=== PATIENT | female | born 1950 | race Caucasian/White ===

== ENCOUNTER 2017-03-11 15:22 | Emergency (ER) | payer MEDICARE ==
--- NOTE | 2017-03-11 15:46 | ERPHSYRPT ---
- History of Present Illness Time Seen by Provider: 03/11/17 15:36 Source: patient Exam Limitations: no limitations Patient Subjective Stated Complaint: states wine bottle fell out of fridge onto right foot Friday night; bruising and swelling, painful to walk Triage Nursing Assessment: old bruising to right dorsal foot extending from base of toes to ankle. Physician History: accidently dropped a heavy glass bottle on her right foot 48-72 hours ago; no other injury; no other complaint; no prior hx Method of Injury: direct blow Occurred: days ago (2-3) Quality: constant, aching Severity of Pain-Max: severe Severity of Pain-Current: moderate Lower Extremities Pain: ankle: left (painful; swollen echhymotic) Modifying Factors: Improves With: cold therapy, immobilization, pain medication Associated Symptoms: unable to bear weight Allergies/Adverse Reactions: isosorbide Allergy (Verified 07/27/14 16:59) shellfish derived Allergy (Verified 07/27/14 16:59) tramadol Allergy (Verified 07/27/14 16:59) Home Medications: Alprazolam 0.25 mg [xanAX 0.25 MG] 1 tab PO QDP PRN 03/11/17 [History] Aspirin 81 gm Chew [Baby Aspirin 81 mg Chew] 1 tab PO DAILY 03/11/17 [ History] Butalb/Acetaminophen/Caffeine [Zkgufx-Ofqgmpeh-Ytyz 50-325-40] 1 tab PO P94EVOD PRN 03/11/17 [History] Calcium Carbonate [Gaviscon] 1 tab PO QDP PRN 03/11/17 [History] Furosemide 20 mg [Lasix 20 mg] 1 tab PO QDP PRN 03/11/17 [History] Hydrocodone/Acetaminophen [Hydrocodone-Acetamin 7.5-325] 1 tab PO Q12H PRN PRN 03/11/17 [History] Ibuprofen 1 tab PO Q4HPRN PRN 03/11/17 [History] Loratadine 10 mg [Claritin 10 mg] 1 tab PO DAILY 03/11/17 [History] Metformin HCl 500 mg [Glucophage 500 MG] 1 tab PO BID 03/11/17 [History] Montelukast Sodium 10 mg [Singulair 10 MG] 1 tab PO DAILY 03/11/17 [History] Mvit,Calcium,Iron,Mins/A.acids [K-[place] Double Strength Capsule] 1 tab PO DAILY [History] Nitroglycerin 0.4 mg (Ed) [Nitrostat 0.4 MG (ED)] 1 tab SL Q5MIN PRN MR X 3 PRN 03/11/17 [History] PANTOPRAZOLE 40 mg Tablet [Protonix 40MG Tablet] 1 tab PO DAILY 03/11/17 [ History] Potassium Chloride 10 Meq Tab* [Klor Con 10 MEQ] 1 tab PO QDP PRN 03/11/17 [ History] Rosuvastatin Calcium [Crestor] 1 tab PO DAILY 03/11/17 [History] Hx Tetanus, Diphtheria Vaccination/Date Given: Yes Hx Influenza Vaccination/Date Given: Yes Hx Pneumococcal Vaccination/Date Given: No Immunizations Up to Date: Yes - Review of Systems Constitutional: No Symptoms Eyes: No Symptoms Ears, Nose, & Throat: No Symptoms Respiratory: No Cough, No Dyspnea, No Wheezing Cardiac: No Chest Pain, No Edema, No Palpitations, No Syncope Abdominal/Gastrointestinal: No Abdominal Pain, No Nausea, No Vomiting, No Diarrhea Genitourinary Symptoms: No Symptoms Musculoskeletal: Injury (right foot), No Back Pain, No Neck Pain, No Joint Pain Skin: Other (ecchymosis right foot) Neurological: No Symptoms Psychological: No Symptoms - Past Medical History Pertinent Past Medical History: Yes Neurological History: No Pertinent History Cardiac History: Hypertension, Other Respiratory History: No Pertinent History Endocrine Medical History: No Pertinent History Psycho-Social History: Anxiety - Past Surgical History Past Surgical History: Yes Gastrointestinal: Cholecystectomy, Hernia Repair Female Surgical History: Section, Hysterectomy Other Surgical History: TONSILS. WRIST SURGERY. LT FINGER AMPUTATION - Social History Smoking Status: Never smoker Exposure to second hand smoke: No Alcohol Use: Socially Drug Use: none Patient Lives Alone: No Significant Family History: no pertinent family hx - Female History Hx Now: No - Nursing Vital Signs Nursing Vital Signs: Initial Vital Signs Temperature 97.5 F 03/11/17 15:31 Pulse Rate 92 H 03/11/17 15:31 Respiratory Rate 20 03/11/17 15:31 Blood Pressure 168/95 03/11/17 15:31 O2 Sat by Pulse Oximetry 97 03/11/17 15:31 Pain Scale Pain Intensity 4 - Physical Exam General Appearance: mild distress, alert Neck Exam: normal inspection, non-tender, supple, full range of motion Hips Exam: bilateral: non-tender, normal inspection, normal range of motion, no evidence of injury Legs Exam: bilateral leg: non-tender, normal inspection, normal range of motion , no evidence of injury Knees Exam: bilateral knee: non-tender, normal inspection, normal range of motion, no evidence of injury Ankle Exam: bilateral ankle: non-tender, normal inspection, normal range of motion, no evidence of injury Foot Exam: right foot: bone tenderness (mid dorsum), pain (mid dorsum), soft tissue tenderness (mid dorsum), swelling (mid dorsum), left foot: non-tender, normal inspection, no evidence of injury, bilateral foot: normal range of motion DTR - Lower Extremities Exam: knee (R): 4+, knee (L): 4+ Neuro/Tendon Exam: normal sensation, normal motor functions, normal tendon functions, responds to pain Mental Status Exam: alert, oriented x 3, cooperative Skin Exam: normal color, warm, dry, ecchymosis (dorsum distal right foot) SpO2 Interpretation: normal SpO2: 97 Oxygen Delivery: Room Air - Course Nursing assessment & vital signs reviewed: Yes - Radiology Exams Right Foot X-ray Interpretation: Reviewed by me, Teleradiologist Report, Negative, No Fracture Ordered Tests: Active Orders 24 hr Category Date Time Status Cold Application STAT Care 03/11/17 15:39 Active Re-Check Vital Signs STAT Care 03/11/17 15:39 Active FOOT (MINIMUM 3 VIEWS) Stat Exams 03/11/17 15:39 Completed - Progress Progress: unchanged, re-examined (after xr) Progress Note: 03/11/17 15:45 ice applied; xr pending will recheck 03/11/17 16:31 xr neg; results shared; instructons given Counseled pt/family regarding: diagnosis, need for follow-up, rad results - Departure Time of Disposition: 16:31 Departure Disposition: Home Clinical Impression: Contusion of right foot, initial encounter Condition: Stable Critical Care Time: No Referrals: ISSA ROBB [Primary Care Provider] - Instructions: Foot Pain Additional Instructions: Acute Sprain Instructions lower extremity; R.I.C.E.; wear splint/immobilyzer as directed; observe for neuro-vascular compromise ( change in color; increased pain; cold to touch); Use crutches, walker, cane as directed. FU LMD/ specialist as directed; call for appointment as directed; Return if problems;motrin prn Take meds as prescribed. Follow-up with family doctor as directed. Call for appointment. Return if any problems. If you smoke please stop. Call or follow up with your family doctor for assistance if you need it to stop. Please wear your seatbelt when driving. Have a nice day. Thank you for allowing us to participate in your care today. :o) Dr Sarath Zhu
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
[2017-03-11 16:33] VITALS: BP 107/72; PULSE 80; O2SAT 96
== END 2017-03-11 16:57 | disposition home or self-care (01) ==
LOC: ED 15:22
DX: S90.31XA Contusion of right foot, initial encounter (principal); M79.671 Pain in right foot; W22.8XXA Striking against or struck by other objects, initial encounter; I10 Essential (primary) hypertension; Z79.899 Other long term (current) drug therapy
CPT/HCPCS: 73630; 99283

== ENCOUNTER 2022-02-14 12:18 | Emergency (ER) | payer MEDICARE, OTHER ==
--- NOTE | 2022-02-14 13:16 | ERPHSYRPT ---
- History of Present Illness Time Seen by Provider: 02/14/22 12:40 Source: patient Exam Limitations: no limitations Patient Subjective Stated Complaint: pt to ER with complaints of pain since Friday in her left leg. pt states she has pain with walking. Triage Nursing Assessment: pt ambulatory, skin pwd. A&Ox4. pt lower left leg pain with ambulation. Physician History: Patient is a 72-year-old female who presents with a complaint of pain in the left leg with weightbearing. This is been going on for 4 days she finds it difficult to put weight on it when walking. She awoke from sleep on Friday with no history of any trauma. The pain seems to localize most around the left knee. Method of Injury: unknown Occurred: days ago (4) Severity of Pain-Max: moderate Severity of Pain-Current: moderate Lower Extremities Pain: knee: left (She has a positive Homans at the top of the calf and tenderness in the popliteal fossa. On the left.) Modifying Factors: Improves With: movement Associated Symptoms: other (Pain with weightbearing) Allergies/Adverse Reactions: isosorbide Allergy (Verified 02/14/22 12:45) shellfish derived Allergy (Verified 02/14/22 12:45) tramadol Allergy (Verified 02/14/22 12:45) Home Medications: Loratadine 10 mg [Claritin 10 mg] 1 tab PO DAILY 03/11/17 [History] Hx Tetanus, Diphtheria Vaccination/Date Given: Yes Hx Influenza Vaccination/Date Given: Yes Hx Pneumococcal Vaccination/Date Given: No Travel Risk - International Travel Have you traveled outside of the country in past 3 weeks: No - Coronavirus Screening Are you exhibiting any of the following symptoms?: No Close contact with a COVID-19 positive Pt in past 14-21 Days: No - Vaccine Status Have you recieved a Covid-19 vaccination: No - Review of Systems Constitutional: No Fever, No Chills Eyes: No Symptoms Ears, Nose, & Throat: No Symptoms Respiratory: No Cough, No Dyspnea Cardiac: No Chest Pain, No Edema, No Syncope Abdominal/Gastrointestinal: No Abdominal Pain, No Nausea, No Vomiting, No Diarrhea Genitourinary Symptoms: No Dysuria Musculoskeletal: Joint Pain, No Back Pain, No Neck Pain Skin: No Rash Neurological: No Dizziness, No Focal Weakness, No Sensory Changes Psychological: No Symptoms Endocrine: No Symptoms All Other Systems: Reviewed and Negative - Past Medical History Pertinent Past Medical History: Yes Neurological History: No Pertinent History ENT History: Other Cardiac History: Hypertension, Other Respiratory History: No Pertinent History Endocrine Medical History: No Pertinent History Musculoskeletal History: Arthritis GI Medical History: GERD Psycho-Social History: Anxiety Other Medical History: hearing loss, use of hearing aids. - Past Surgical History Past Surgical History: Yes Gastrointestinal: Cholecystectomy, Hernia Repair Female Surgical History: Section, Hysterectomy Other Surgical History: TONSILS. WRIST SURGERY. LT FINGER AMPUTATION - Social History Smoking Status: Never smoker Exposure to second hand smoke: No Alcohol Use: Socially Drug Use: none Patient Lives Alone: No Significant Family History: no pertinent family hx - Nursing Vital Signs Nursing Vital Signs: Initial Vital Signs Temperature 98.1 F 02/14/22 12:35 Pulse Rate 78 02/14/22 12:35 Respiratory Rate 16 02/14/22 12:35 Blood Pressure 183/77 02/14/22 12:35 O2 Sat by Pulse Oximetry 97 02/14/22 12:35 Pain Scale Pain Intensity 5 - Physical Exam General Appearance: alert Eyes, Ears, Nose, Throat Exam: normal ENT inspection Neck Exam: normal inspection, non-tender, supple Cardiovascular/Respiratory Exam: chest non-tender, normal breath sounds, regular rate/rhythm, no respiratory distress Gastrointestinal/Abdominal Exam: non-tender, guarding Back Exam: normal inspection, No vertebral tenderness Hips Exam: bilateral: non-tender, normal inspection, normal range of motion Legs Exam: left leg: normal inspection, normal range of motion, no evidence of injury, soft tissue tenderness (Positive Homans left calf) Knees Exam: left knee: pain, soft tissue tenderness Ankle Exam: bilateral ankle: non-tender, normal inspection, normal range of motion Foot Exam: bilateral foot: non-tender, normal inspection, normal range of motion Neuro/Tendon Exam: normal sensation, normal motor functions Mental Status Exam: alert, oriented x 3, cooperative Skin Exam: normal color, warm, dry SpO2 Interpretation: normal SpO2: 97 O2 Delivery: Room Air - Course Nursing assessment & vital signs reviewed: Yes - Radiology Exams Left Knee X-ray Interpretation: Interpreted by me, Negative Ordered Tests: Active Orders 24 hr Category Date Time Status KNEE (3 VIEWS) Stat Exams 02/14/22 Taken VENOUS UNILAT/LIMITED EXTREMIT [US] Stat Exams 02/14/22 13:05 Taken - Progress Progress: unchanged - Departure Departure Disposition: Home Clinical Impression: Left knee pain Condition: Stable Critical Care Time: No Referrals: EMMA WRIGHT NP [Primary Care Provider] - Follow up/PCP as directed Instructions: Knee Pain (DC)
[2022-02-14 13:36] VITALS: BP 138/79; PULSE 70; O2SAT 96
--- NOTE | 2022-02-14 14:01 | XRAY ---
Exam: Duplex Doppler Ultrasound of the left lower extremity. Comparison: Bilateral lower extremity duplex Doppler venous ultrasound exam from 09/23/2007. Indication: 72-year-old female with left leg pain. Findings: The examination of the left lower extremity was carried out in the usual manner imaging hospital insurance representative sections of the common femoral vein through the popliteal vein. The posterior tibial veins were also evaluated. Normal color flow was seen throughout. Normal spontaneous and phasic flow was seen at all hospital insurance representative sections. There was normal transducer compression and doppler signal augmentation at all levels. The greater saphenous vein demonstrated normal color blood flow, compression, and Doppler signal augmentation within the proximal left thigh. Impression: 1. No evidence of deep venous thrombosis within the left lower extremity. No evidence of superficial venous thrombosis is seen within the greater saphenous vein within the proximal left thigh.
--- NOTE | 2022-02-14 14:23 | XRAY ---
Exam: 3 views of the left knee from 02/14/2022. Comparison: 3 views of the left knee from 05/07/2009. Indication: 72-year-old female with left knee pain. Findings: AP, internal oblique, and lateral radiographs of the left knee were obtained. I see no acute fracture or dislocation. There is a minimal suprapatellar effusion on the lateral radiograph. Small spurs are seen at the upper posterior and lower posterior margins of the left patella. I cannot exclude some mild narrowing of the patellofemoral joint. A sunrise view would better image this site. There is mild narrowing of the medial compartment of the left knee joint with some mild osteophyte formation on both sides of the medial aspect of the left knee joint as well as at the level of the tibial eminences. The lateral compartment of the left knee joint appears unremarkable. Impression: 1. Mild bicompartmental osteoarthritis of the left knee affecting the medial compartment and patellofemoral joint. 2. Small suprapatellar effusion of the left knee. 3. No acute left knee fracture, dislocation, or other significant focal bone lesion is seen.
== END 2022-02-14 13:37 | disposition home or self-care (01) ==
LOC: ED 12:18
DX: M25.562 Pain in left knee (principal); I10 Essential (primary) hypertension; Z28.310 Unvaccinated for COVID-19
CPT/HCPCS: 73562; 93971; 99283; L1830

== ENCOUNTER 2023-03-26 06:29 | Day surgery (SDC) | payer MEDICARE, OTHER ==
[2023-03-26] MEDS ORDERED: Lactated Ringers 1,000 ML IV SCH (06:30)
[2023-03-26 07:07] VITALS: RESP 16
[2023-03-26] MEDS ORDERED: Xylocaine-Mpf 2% 5 Ml Vial ONE (07:40)
[2023-03-26] MEDS ORDERED: DIPRIVAN 200 MG/20 ML IV ONE ×2 (07:40→07:47)
[2023-03-26 08:25] VITALS: TEMP 97
[2023-03-26 08:48] VITALS: BP 152/57; PULSE 63; O2SAT 99
--- NOTE | 2023-03-26 14:06 | OP ---
SURGERY DATE/TIME: 03/26/2023 0739 PREOPERATIVE DIAGNOSIS: Positive Cologuard. POSTOPERATIVE DIAGNOSIS: Colon polyps x2. PROCEDURE: Colonoscopy. SURGEON: Bnejy Jimenez M.D. ANESTHESIA: MAC by Juan Townsend CRNA. ESTIMATED BLOOD LOSS: Minimal. SPECIMENS: Two hot forceps polypectomies. DESCRIPTION OF PROCEDURE: After informed written consent was obtained, the patient was taken to the endoscopy suite. She was placed in left lateral decubitus position and anesthesia was titrated to desired level of consciousness. Digital rectal exam showed normal sphincter tone and no internal lesions. The scope was inserted into the rectum and sequentially the entire colonic mucosa was traversed. The level of cecum was reached and verified with direct visualization of the ileocecal valve. There was a small sessile polyp in the cecal region near the valve which is grasped with forceps, cauterized and removed in its entirety and sent to pathology. Upon withdrawal careful mucosal inspection revealed no gross mucosal abnormalities until the distal sigmoid colon was reached. There was another small sessile polyp in that region which was grasped with forceps, cauterized and sent to pathology. There was no bleeding. The entire lesion appeared to be removed with good cauterization of the bed. Prior to withdrawal retroflexion was performed and showed no internal lesions. The scope was removed. The patient was transferred to the recovery room in good condition. Will follow up in a week for pathology results.
== END 2023-03-26 09:00 | disposition home or self-care (01) ==
LOC: SDC 06:29
PROVIDERS: ATTEND Family Medicine
DX: D12.0 Benign neoplasm of cecum (principal); D12.5 Benign neoplasm of sigmoid colon; R19.5 Other fecal abnormalities
CPT/HCPCS: 99100; J2704

== ENCOUNTER 2023-08-13 14:49 | Emergency (ER) | payer MEDICARE, OTHER ==
[2023-08-13 15:10] VITALS: RESP 16; TEMP 97.8; O2SAT 96
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
[2023-08-13] MEDS ORDERED: ENOXAPARIN SODIUM SQ ONE (16:30)
[2023-08-13] MEDS: ENOXAPARIN SODIUM SQ ONE (16:38)
--- NOTE | 2023-08-13 16:41 | XRAY ---
Indication: Calf pain. Two-dimensional sonogram and color Doppler imaging major venous vessels were leg performed. Comparison: None Nonoccluding thrombus in the popliteal vein. No thrombus seen in the remaining deep venous vessels right leg including greater saphenous vein. Patent veins demonstrate normal compressibility and normal venous waveforms. Impression: Nonoccluding DVT popliteal vein.
[2023-08-13 16:49] VITALS: BP 167/91; PULSE 65
== END 2023-08-13 16:54 | disposition home or self-care (01) ==
LOC: ED 14:49
DX: I82.431 Acute embolism and thrombosis of right popliteal vein (principal); M79.661 Pain in right lower leg; I10 Essential (primary) hypertension; Z79.01 Long term (current) use of anticoagulants; Z79.899 Other long term (current) drug therapy
CPT/HCPCS: 93971; 96372; 99282; J1650

== ENCOUNTER 2023-08-13 18:32 | Observation (INO) | payer MEDICARE, OTHER ==
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
[2023-08-13] MEDS ORDERED: TYLENOL 325 MG ONE (20:10)
[2023-08-13] MEDS: TYLENOL 325 MG PO ONE (20:11)
[2023-08-13 20:16] LABS: Absolute Neutrophil Ct (ANC) 5.48 x10^3/uL (1.4-6.9); BASOPHIL % 0.7 % (0.0-0.4); Basophil (Absolute #) 0.07 x10^3/uL (0-0.4); Eosinophil % 3.2 % (0.00-5.0); Eosinophil (Absolute #) 0.32 x10^3/uL (0-0.5); Hemoglobin 13.5 g/dL (12.0-16.0); IMMATURE GRAN # 0.04 x10^3u/L (0.00-0.03); IMMATURE GRAN % 0.4 % (0.00-0.4); Lymphocytes % 34.7 % (24.0-44.0); Mean Cell Volume 94.9 fL (78-100); Mean Corpuscular Hemoglobin 32.8 pg (26-32); Mean Corpuscular Hgb Concent. 34.6 g/dL (32-36); Monocyte (Absolute #) 0.68 x10^3/uL (0.0-1.3); Monocytes % 6.7 % (0.0-12.0); Neutrophil % 54.3 % (36.0-66.0); Platelet Count 294 x10^3/uL (150-450); Red Blood Count 4.11 x10^6/uL (4.1-5.4); Red Cell Distribution Width 11.7 % (11.5-14.0); White Blood Count 10.1 x10^3/uL (4.0-10.5)
[2023-08-13 20:59] LABS: ALBUMIN 4.3 g/dL (3.5-5.0); ANION GAP 12.7 MEQ/L (5-15); BILIRUBIN,TOTAL 0.8 mg/dL (0.2-1.3); Calcium 9.2 mg/dL (8.4-10.2); Creatinine 1 0.47 mg/dL (0.52-1.04); EST GLOMERULAR FILTRATION RATE 100.5 ML/MIN; Potassium 4.7 mmol/L (3.5-5.1); Total Protein 8.1 g/dL (6.3-8.2)
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
[2023-08-13] MEDS ORDERED: IRBESARTAN PO SCH (21:30)
[2023-08-13] MEDS ORDERED: HYDROCHLOROTHIAZIDE PO SCH (21:30)
[2023-08-13] MEDS ORDERED: [UNRECOGNIZED DRUG - OTHER] PO SCH (21:30)
[2023-08-13] MEDS ORDERED: ELIQUIS 2.5 MG TABLET ONE (22:43)
[2023-08-13] MEDS: NON-FORMULARY ITEM (Apixaban [Eliquis] 5 MG Tablet) PO SCH (22:44)
[2023-08-14] MEDS: NORCO 5/325 MG PO PRN (01:02)
[2023-08-14] MEDS ORDERED: MEDICATION INTERVENTION MC SCH (07:00)
[2023-08-14 07:31] VITALS: TEMP 97.4
[2023-08-14 07:34] LABS: Absolute Neutrophil Ct (ANC) 3.92 x10^3/uL (1.4-6.9); BASOPHIL % 0.8 % (0.0-0.4); Basophil (Absolute #) 0.06 x10^3/uL (0-0.4); Eosinophil (Absolute #) 0.31 x10^3/uL (0-0.5); Hemoglobin 12.4 g/dL (12.0-16.0); IMMATURE GRAN # 0.02 x10^3u/L (0.00-0.03); IMMATURE GRAN % 0.3 % (0.00-0.4); Lymphocyte (Absolute #) 2.81 x10^3/uL (1.0-4.6); Lymphocytes % 36.2 % (24.0-44.0); Mean Cell Volume 95.2 fL (78-100); Mean Corpuscular Hemoglobin 32.8 pg (26-32); Mean Corpuscular Hgb Concent. 34.4 g/dL (32-36); Mean Platelet Volume 10.8 fL (7.5-11.0); Monocyte (Absolute #) 0.65 x10^3/uL (0.0-1.3); Monocytes % 8.4 % (0.0-12.0); Neutrophil % 50.3 % (36.0-66.0); Platelet Count 280 x10^3/uL (150-450); Red Blood Count 3.78 x10^6/uL (4.1-5.4); Red Cell Distribution Width 11.9 % (11.5-14.0); White Blood Count 7.8 x10^3/uL (4.0-10.5)
[2023-08-14 07:59] LABS: ALBUMIN 3.8 g/dL (3.5-5.0); BILIRUBIN,TOTAL 0.9 mg/dL (0.2-1.3); Calcium 8.7 mg/dL (8.4-10.2); Creatinine 1 0.53 mg/dL (0.52-1.04); EST GLOMERULAR FILTRATION RATE 97.6 ML/MIN; Total Protein 7.5 g/dL (6.3-8.2)
--- NOTE | 2023-08-14 09:07 | PCM.DS ---
Discharge Summary Date of Admission: 08/13/23 20:39 Date of Discharge: 08/14/23 Admitting Physician: ERNESTO SHAW MD Primary Care Provider: EMMA WRIGHT Allergies Allergies isosorbide Allergy (Verified 08/13/23 15:04) shellfish derived Allergy (Verified 08/13/23 15:04) tramadol Allergy (Verified 08/13/23 15:04) Hospital Summary - Hospital Course Hospital Course: is a 73 year old female who presented to the ED for the second time for right leg pain associated with a recent RLE DVT. Pt recently was seen in the ED due to right leg pain, found to have a DVT and sent home on a DOAC. Patient lives alone and feels she is a fall risk and requested admission for pain control. No fever, SOB, chest pain or bleeding. Pain has improved. Patient able to ambulate with walker, CM to set up walker for home use. Elquis sent to pharmacy by ED doc with follow up scheduled with PCP. Patient states she does not like to take pain medications other than OTC, declines norco prescription. Discharge Note New Diagnosis: RLE DVT New Medications: Eliquis -already sent to pharm by ED Follow Up: PCP Latest Assessment & Plan (1) DVT (deep venous thrombosis) Current Visit: Yes Status: Acute Assessment & Plan: Right leg DVT with pain Continue home DOAC Acetaminophen PRN Ambulate / PT if needed #HTN -Stable - continue home medications # GERD -continue home medication I spent 35 minutes [id number] with the patient on the day of discharge performing discharge exam, discussing hospital stay and discharge instructions with patient and caregivers, preparation of discharge records, prescriptions & referral forms and addressing any questions/concerns the patient had as documented above. - Vitals & Intake/Output Vital Signs: Vital Signs Temperature 97.4 F 08/14/23 07:30 Pulse Rate 67 08/14/23 07:30 Respiratory Rate 18 08/14/23 07:30 Blood Pressure 134/68 08/14/23 07:30 O2 Sat by Pulse Oximetry 93 L 08/14/23 07:30 Intake & Output: Intake & Output 08/11/23 08/12/23 08/13/23 08/14/23 11:59 11:59 11:59 11:59 Intake Total 120 Balance 120 Weight 74.1 kg - Lab Result Diagrams: 08/14/23 07:12 08/14/23 07:25 Lab Results-Last 24 Hrs: Lab Results-Last 24 Hours 08/13/23 08/13/23 08/14/23 Range/Units 20:05 20:05 07:12 WBC 10.1 7.8 (4.0-10.5) x10^3/uL RBC 4.11 3.78 L (4.1-5.4) x10^6/uL Hgb 13.5 12.4 (12.0-16.0) g/dL Hct 39.0 36.0 (35-47) % MCV 94.9 95.2 (78-100) fL MCH 32.8 H 32.8 H (26-32) pg MCHC 34.6 34.4 (32-36) g/dL RDW 11.7 11.9 (11.5-14.0) % Plt Count 294 280 (150-450) x10^3/uL MPV 11.0 10.8 (7.5-11.0) fL Gran % 54.3 50.3 (36.0-66.0) % Immature Gran % (Auto) 0.4 0.3 (0.00-0.4) % Nucleat RBC Rel Count 0.0 0.0 (0.00-0.1) % Eos # (Auto) 0.32 0.31 (0-0.5) x10^3/uL Immature Gran # (Auto) 0.04 H 0.02 (0.00-0.03) x10^3u/L Absolute Lymphs (auto) 3.50 2.81 (1.0-4.6) x10^3/uL Absolute Monos (auto) 0.68 0.65 (0.0-1.3) x10^3/uL Absolute Nucleated RBC 0.00 0.00 (0.00-0.01) x10^3u/L Lymphocytes % 34.7 36.2 (24.0-44.0) % Monocytes % 6.7 8.4 (0.0-12.0) % Eosinophils % 3.2 4.0 (0.00-5.0) % Basophils % 0.7 0.8 (0.0-0.4) % Absolute Granulocytes 5.48 3.92 (1.4-6.9) x10^3/uL Basophils # 0.07 0.06 (0-0.4) x10^3/uL Sodium 138 (135-145) mmol/L Potassium 4.7 (3.5-5.1) mmol/L Chloride 108 H (98-107) mmol/L Carbon Dioxide 22 (22-30) mmol/L Anion Gap 12.7 (5-15) MEQ/L BUN 10 (7-17) mg/dL Creatinine 0.47 L (0.52-1.04) mg/dL Estimated GFR 100.5 ML/MIN Glucose 111 H (74-106) mg/dL Calcium 9.2 (8.4-10.2) mg/dL Total Bilirubin 0.80 (0.2-1.3) mg/dL AST 30 (14-36) U/L ALT 26 (0-35) U/L Alkaline Phosphatase 110 (38-126) U/L Serum Total Protein 8.1 (6.3-8.2) g/dL Albumin 4.3 (3.5-5.0) g/dL 08/14/23 Range/Units 07:25 WBC (4.0-10.5) x10^3/uL RBC (4.1-5.4) x10^6/uL Hgb (12.0-16.0) g/dL Hct (35-47) % MCV (78-100) fL MCH (26-32) pg MCHC (32-36) g/dL RDW (11.5-14.0) % Plt Count (150-450) x10^3/uL MPV (7.5-11.0) fL Gran % (36.0-66.0) % Immature Gran % (Auto) (0.00-0.4) % Nucleat RBC Rel Count (0.00-0.1) % Eos # (Auto) (0-0.5) x10^3/uL Immature Gran # (Auto) (0.00-0.03) x10^3u/L Absolute Lymphs (auto) (1.0-4.6) x10^3/uL Absolute Monos (auto) (0.0-1.3) x10^3/uL Absolute Nucleated RBC (0.00-0.01) x10^3u/L Lymphocytes % (24.0-44.0) % Monocytes % (0.0-12.0) % Eosinophils % (0.00-5.0) % Basophils % (0.0-0.4) % Absolute Granulocytes (1.4-6.9) x10^3/uL Basophils # (0-0.4) x10^3/uL Sodium 138 (135-145) mmol/L Potassium 4.0 (3.5-5.1) mmol/L Chloride 108 H (98-107) mmol/L Carbon Dioxide 25 (22-30) mmol/L Anion Gap 9.0 (5-15) MEQ/L BUN 11 (7-17) mg/dL Creatinine 0.53 (0.52-1.04) mg/dL Estimated GFR 97.6 ML/MIN Glucose 125 H (74-106) mg/dL Calcium 8.7 (8.4-10.2) mg/dL Total Bilirubin 0.90 (0.2-1.3) mg/dL AST 26 (14-36) U/L ALT 25 (0-35) U/L Alkaline Phosphatase 90 (38-126) U/L Serum Total Protein 7.5 (6.3-8.2) g/dL Albumin 3.8 (3.5-5.0) g/dL - Procedures and Test Procedures and Tests throughout Hospitalization: Therapy Orders & Screens 08/14/23 09:01 PT Eval & Treat ( Order) ONCE Reason for Eval:: right leg pain Diagnosis: Right lower extremity DVT, leg pain Discharge Exam General Appearance: no apparent distress Neurologic Exam: alert, oriented x 3, cooperative Eye Exam: PERRL Ears, Nose, Throat Exam: normal ENT inspection Neck Exam: normal inspection Respiratory Exam: normal breath sounds, lungs clear Cardiovascular Exam: regular rate/rhythm, normal heart sounds Gastrointestinal/Abdomen Exam: soft, normal bowel sounds Pelvic Exam: deferred Rectal Exam: deferred Back Exam: normal inspection Extremity Exam: swelling (RLE) Skin Exam: normal color Final Diagnosis/Problem List - Final Discharge Diagnosis/Problem (1) DVT (deep venous thrombosis) Current Visit: Yes Status: Acute Code(s): I82.409 - ACUTE EMBOLISM AND THOMBOS UNSP DEEP VN UNSP LOWER EXTREMITY (2) HTN (hypertension) Current Visit: Yes Status: Chronic Code(s): I10 - ESSENTIAL (PRIMARY) HYPERTENSION (3) GERD (gastroesophageal reflux disease) Current Visit: Yes Status: Chronic Code(s): K21.9 - GASTRO-ESOPHAGEAL REFLUX DISEASE WITHOUT ESOPHAGITIS (4) Leg pain Current Visit: Yes Status: Acute - Discharge Disposition: Home, Self-Care Condition: Stable Prescriptions: Continue Irbesartan/Hydrochlorothiazide [Irbesartan-Hctz 150-12.5 mg Tb] 1 tab PO DAILY Apixaban [Eliquis] 10 mg PO BID #30 tablet Follow up with: EMMA WRIGHT NP [Primary Care Provider] - 08/19/23 10:45 am
[2023-08-14] MEDS: hydroDIURIL 25 MG PO SCH (10:32)
[2023-08-14] MEDS: Avapro 150 MG PO SCH (10:32)
[2023-08-14] MEDS: ELIQUIS 2.5 MG TABLET PO SCH (10:34)
[2023-08-14] MEDS: TYLENOL EXTRA STRENGTH 500 MG PO PRN (11:00)
[2023-08-14 11:51] VITALS: BP 134/86; PULSE 73; RESP 20; O2SAT 98
== END 2023-08-14 13:33 | disposition home health service (06) ==
LOC: ED 18:32 → MED SURG 20:39
PROVIDERS: ADMIT Student in an Organized Health Care Education/Training Program; ATTEND Student in an Organized Health Care Education/Training Program
DX: I82.4Z1 Acute embolism and thrombosis of unspecified deep veins of right distal lower extremity (principal); I10 Essential (primary) hypertension; K21.9 Gastro-esophageal reflux disease without esophagitis; M79.661 Pain in right lower leg; Z79.899 Other long term (current) drug therapy
CPT/HCPCS: 36000; 36415; 80053; 85025; 93268; 97161; 99285; G0378; Q3014; A9270-GY

== ENCOUNTER 2024-03-17 12:52 | Emergency (ER) | payer MEDICARE ==
[2024-03-17 13:08] VITALS: TEMP 98
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
[2024-03-17] MEDS ORDERED: TORAdol 30 mg Injection ONE (13:46)
[2024-03-17] MEDS ORDERED: Norflex 60 MG/2 ML ONE (13:46)
[2024-03-17] MEDS: TORAdol 30 mg Injection IM ONE (13:47)
[2024-03-17] MEDS: Norflex 60 MG/2 ML IM ONE (13:47)
[2024-03-17 14:04] VITALS: BP 140/60; PULSE 90; RESP 18; O2SAT 96
--- NOTE | 2024-03-17 18:12 | XRAY ---
Indication: Pain. Comparison: None 3 view cervical spine demonstrates osteopenia, minimal levoscoliosis centered at T2, minimal/mild C5-C7 disc space narrowing/endplate spurring, mild right acromioclavicular degenerative arthropathy with tiny inferior spurring, and tiny left hilar calcified node. No acute bony, articular, or soft tissue abnormalities.
== END 2024-03-17 14:04 | disposition home or self-care (01) ==
LOC: ED 12:52
DX: S29.012A Strain of muscle and tendon of back wall of thorax, initial encounter (principal); S16.1XXA Strain of muscle, fascia and tendon at neck level, initial encounter; M54.2 Cervicalgia; M25.512 Pain in left shoulder; M79.602 Pain in left arm; I10 Essential (primary) hypertension; Z79.899 Other long term (current) drug therapy
CPT/HCPCS: 72040; 96372; 99284; J1885; J2360